=== PATIENT | male | born 1960 | race Asian ===

== ENCOUNTER → 2016-10-13 | Outpatient (CLI) | payer BC ==
--- NOTE | 2016-10-13 16:20 | RADRPT ---
PROCEDURE: Renal US. CLINICAL INDICATION: Renal dysfunction. TECHNIQUE: Multiple sonographic images of the kidneys and urinary bladder were obtained. The imag es were reviewed on a PACS workstation. COMPARISON: 02/11/2016. FINDINGS: The right kidney measures 9.4 x 4.6 x 5.5 cm. The left kidney measures 8.5 x 5.2 x 5.3 cm. There is no renal mass. The right kidney is smaller than the left kidney. There is no hydronephrosis. There is no renal calculus. Renal parenchymal thickness is normal bilaterally. Echogenicity is normal bilaterally. The perirenal regions are normal with no fluid collection or mass. The urinary bladder is unremarkable. IMPRESSION: 1. Right kidney smaller than left kidney. 2. No hydronephrosis. 3. Otherwise normal renal ultrasound. RPTAT: QQ .Arjun Samuel MD, Date Time Electronically viewed and signed by .Arjun Samuel MD, MD on 10/13/2016 16:20 .R/
== END | disposition home or self-care (01) ==
LOC: U/S 15:12
PROVIDERS: ATTEND Internal Medicine
DX: N28.9 Disorder of kidney and ureter, unspecified (principal)
CPT/HCPCS: 76775